=== PATIENT | male | born 1990 | race Caucasian/White ===

== ENCOUNTER 2023-01-13 20:27 | Emergency (ER) | payer MEDICAID ==
[~2023-01-13] VITALS: Ht 182.9 cm; Wt 78.0 kg
[2023-01-13 21:05] VITALS: BP 115/65
== END 2023-01-14 01:32 | disposition left against medical advice (07) ==
LOC: EMS 20:29
DX: Z53.21 Procedure and treatment not carried out due to patient leaving prior to being seen by health care provider (principal)
CPT/HCPCS: 73600-TC; 73620-TC